=== PATIENT | female | born 1995 | race Hispanic/Latino ===

== ENCOUNTER 2020-05-14 22:50 | Emergency (ER) | payer SELFPAY ==
[2020-05-15] MEDS ORDERED: Boostrix 0.5 ML (Tdap) VIAL ONE (00:26)
[2020-05-15] MEDS ORDERED: Silver Sulfadiazine 50 GM TUBE ONE (00:26)
== END 2020-05-15 00:49 | disposition home or self-care (01) ==
LOC: ERS 22:50
DX: T22.211A Burn of second degree of right forearm, initial encounter (principal); X10.2XXA Contact with fats and cooking oils, initial encounter
CPT/HCPCS: 16020; 90471; 90715